=== PATIENT | female | born 1950 | race African-American/Black ===

== ENCOUNTER → 2017-06-29 | Day surgery (SDC) | payer MEDICARE, BC ==
[~2017-06-29] MED LIST: LIDOCAINE 1%/EPI 1:200,000 10 ML VIAL IJ ONE; SODIUM BICARBONATE 4.2% 5 MEQ/10 ML DISP.SYRIN IV ONE; STERILE WATER FOR INJECTION 10ML VIAL ONE
== END | disposition home or self-care (01) ==
LOC: RAD 06:42
PROVIDERS: ATTEND Internal Medicine
DX: R92.1 Mammographic calcification found on diagnostic imaging of breast (principal)
CPT/HCPCS: 19081; 88305; A4216; A4648; J3490

== ENCOUNTER 2017-08-05 06:03 | Day surgery (SDC) | payer MEDICARE, BC ==
[~2017-08-05] VITALS: Ht 180.3 cm; Wt 124.7 kg
[~2017-08-05 06:03] MED LIST changes: +ALBU6.7H IH; +ALLO100T PO; +ATEN50TA PO; +DULO60CA44 PO; -LIDOCAINE 1%/EPI 1:200,000 10 ML VIAL IJ ONE; +PREG75CA PO; -SODIUM BICARBONATE 4.2% 5 MEQ/10 ML DISP.SYRIN IV ONE; -STERILE WATER FOR INJECTION 10ML VIAL ONE; +TRAZ-132 PO
[2017-08-05] MEDS ORDERED: SODIUM CHLORIDE 0.9% 10ML VIAL ONE (07:08)
[2017-08-05] MEDS ORDERED: LACTATED RINGERS 1,000 ML IV SCH (07:20)
[2017-08-05] MEDS ORDERED: NORMAL SALINE 0.9% 10 ML SYR ONE ×2 (07:39→10:10)
[2017-08-05] MEDS ORDERED: METHYLENE BLUE 50 MG/10 ML AMP IV ONE (07:39)
[2017-08-05] MEDS ORDERED: BUPIVACAINE HCL 0.5% (5MG/ML) 50ML ONE (07:40)
[2017-08-05] MEDS ORDERED: SKIN ADHESIVE 0.7 GM EA TOP ONE ×2 (08:11→12:19)
[2017-08-05] MEDS ORDERED: LABETALOL HCL 5MG/ML VIAL 20ML IV PRN (11:30)
[2017-08-05] MEDS ORDERED: ONDANSETRON HCL 4MG/2ML VIAL IV PRN (11:30)
[2017-08-05] MEDS ORDERED: HYDROMORPHONE HCL/PF 2MG/ML CPJ IV PRN (11:30)
[2017-08-05] MEDS ORDERED: MEPERIDINE HCL/PF 25MG/ML CPJ IV PRN (11:30)
== END 2017-08-05 15:00 | disposition home or self-care (01) ==
LOC: RAD 06:03
PROVIDERS: ATTEND Surgery
DX: D05.11 Intraductal carcinoma in situ of right breast (principal); E66.01 Morbid (severe) obesity due to excess calories; I10 Essential (primary) hypertension; L93.0 Discoid lupus erythematosus; Z88.7 Allergy status to serum and vaccine
CPT/HCPCS: 19281; 19301; 88307; A4216; G0168; J2250; J3010; J3490; J7120; J2704; Q9968